=== PATIENT | female | born 1990 | race Two or more races ===

== ENCOUNTER 2024-04-07 04:46 | Inpatient (IN) | payer OTHER, SELFPAY ==
[2024-04-07 04:57] VITALS: BMI 36.4
[2024-04-07] MEDS: LR 1000 IV ×2 (05:40→12:09)
[2024-04-07] MEDS: VANCOCIN 540 MG IV (06:10)
[2024-04-07 06:28] LABS: % Basophils 0.3 % (0-2); % Eosinophils 0.8 % (0-6); % Immature Granulocytes 2.3 % (0-0.5); % Lymphocytes 14.7 % (20.5-51.1); % Neutrophils 76.9 % (42.2-75.2); Absolute Eosinophils 0.1 10^3/uL (0-0.7); Absolute Immature Granulocytes 0.4 10^3/uL (0-0.05); Absolute Lymphocytes 2.3 10^3/uL (1.2-3.4); Absolute Monocytes 0.8 10^3/uL (0.1-0.6); Hematocrit 41.1 % (37.0-47.0); Hemoglobin 12.8 g/dL (12.0-16.0); Mean Corp Hgb Conc. 31.1 g/dL (33.0-37.0); Mean Corpuscular Hgb 21.7 pg (27.0-31.0); Mean Corpuscular Volume 69.7 fL (81.0-99.0); Mean Platelet Volume 11.7 fL (7.4-10.4); Nucleated Red Blood Cells % 0 %; Platelet Count 231 10^3/uL (130-400); Red Cell Dist. Width 15.5 % (11.5-14.5); White Blood Cell Count 15.5 10^3/uL (4.8-10.8)
[2024-04-07 06:34] VITALS: BP 130/79
[2024-04-07] MEDS: SUBLIMAZE 100 MCG EPIDURAL (06:47)
[2024-04-07] MEDS: FENTANYL/BUPIVACAINE 100 EPIDURAL (06:47)
[2024-04-07] MEDS: BICITRA 30 ML PO (14:32)
[2024-04-07] MEDS: TYLENOL 1000 MG PO (14:32)
[2024-04-07] MEDS: ZITHROMAX INFUSION 250 IV (14:47)
[2024-04-07] MEDS: GENTAMICIN 60 MG IV (15:00)
[2024-04-07] MEDS: CLEOCIN 50 IV (15:00)
[2024-04-07] MEDS: TORADOL 15 MG IV ×2 (18:06→23:48)
[2024-04-08 05:32] LABS: Hematocrit 27.7 % (37.0-47.0); Hemoglobin 8.8 g/dL (12.0-16.0); Mean Corp Hgb Conc. 31.8 g/dL (33.0-37.0); Mean Corpuscular Volume 69.3 fL (81.0-99.0); Platelet Count 171 10^3/uL (130-400); Red Cell Dist. Width 15.2 % (11.5-14.5); White Blood Cell Count 14.9 10^3/uL (4.8-10.8)
[2024-04-08] MEDS: TORADOL 15 MG IV ×3 (05:57→18:01)
[2024-04-08] MEDS: FEOSOL 325 MG PO (08:58)
[2024-04-08] MEDS: TYLENOL 650 MG PO ×2 (08:59→20:17)
[2024-04-08] MEDS: PRENATAL PLUS 1 TABLET PO (08:59)
[2024-04-08] MEDS: SENOKOT-S 1 TABLET PO (08:59)
--- NOTE | 2024-04-08 13:37 | W.PN.ANS.POP ---
Anesthesia Post Operative
- Anesthesia Post Op Note
Vital Signs Stable-See Nursing Note: Yes
Airway Patent: Yes
Adequate Pain Control: Yes
Change in Mental Status: No
Current Postoperative Nausea & Vomiting: No
Anesthesia Complications: No
General Anesthetic Recall: No
Unplanned Admission: No
Post Op Hydration Adequate: Yes
[2024-04-08] MEDS: MYLICON 80 MG PO ×2 (15:46→20:17)
[2024-04-09] MEDS: TYLENOL 650 MG PO ×2 (00:12→06:15)
[2024-04-09] MEDS: MOTRIN 600 MG PO ×2 (00:13→06:15)
[2024-04-09] MEDS: FEOSOL 325 MG PO (07:52)
[2024-04-09] MEDS: PRENATAL PLUS 1 TABLET PO (07:52)
[2024-04-09] MEDS: SENOKOT-S 1 TABLET PO (07:52)
[2024-04-09] MEDS: MYLICON 80 MG PO (07:52)
--- NOTE | 2024-04-09 08:49 | W.DS.TRANS ---
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
-
Discharge Instructions:
Discharge Diagnosis/Procedures Section
Instructions:
Stand-Alone Forms: LDRP Delivery
Changes to Home Medications: No
Discharge Medications:
DC Medications w/original date entered in [facility]
ferrous sulfate 325 mg (65 mg iron) tablet (Iron (ferrous sulfate)) 325 mg PO DAILY Supplement 04/07/24
prenat.vits,tierra,isw-qvdh-gihby 1 tab PO DAILY Supplement 04/07/24
acetaminophen 325 mg tablet 650 mg (2 x 325 mg) PO Q4HPRN PRN mild pain #0 tabs 04/09/24
ibuprofen 600 mg tablet 600 mg PO Q6HPRN PRN cramps #45 tabs 04/09/24
sennosides 8.6 mg-docusate sodium 50 mg tablet 1 tab PO DAILYPRN PRN constipation #0 tabs 04/09/24
Home Medication Changes
Pending Results: No
[2024-04-09] MEDS: M-M-R II 0.5 ML SC (10:45)
[2024-04-11 15:48] LABS: Syphilis/T. pallidum Ab Reflex Negative (Negative)
== END 2024-04-09 11:18 | disposition home or self-care (01) | DRG 788 ==
LOC: LDRP 04:46
PROVIDERS: Obstetrics & Gynecology; ADMITTING PHYSICIAN Obstetrics & Gynecology; REFERRING PHYSICIAN Student in an Organized Health Care Education/Training Program
PROC: 10D00Z1 Extraction of Products of Conception, Low, Open Approach (ICD-10-PCS; 2024-04-07)
PROC: 4A1HXCZ Monitoring of Products of Conception, Cardiac Rate, External Approach (ICD-10-PCS; 2024-04-07)
PROC: 10H07YZ Insertion of Other Device into Products of Conception, Via Natural or Artificial Opening (ICD-10-PCS; 2024-04-07)
PROC: 3E0134Z Introduction of Serum, Toxoid and Vaccine into Subcutaneous Tissue, Percutaneous Approach (ICD-10-PCS; 2024-04-09)
DX: O62.1 Secondary uterine inertia (principal); O34.211 Maternal care for low transverse scar from previous cesarean delivery; O99.824 Streptococcus B carrier state complicating childbirth; J45.990 Exercise induced bronchospasm; O99.52 Diseases of the respiratory system complicating childbirth; D56.3 Thalassemia minor; O99.02 Anemia complicating childbirth; D50.9 Iron deficiency anemia, unspecified; Z23 Encounter for immunization; Z88.0 Allergy status to penicillin; Z3A.39 39 weeks gestation of pregnancy; Z37.0 Single live birth
CPT/HCPCS: 36415; 85025; 85027; 86780; 86850; 86900; 86901; 90707

== ENCOUNTER → 2024-05-24 10:10 | Outpatient (REF) | payer OTHER, SELFPAY | LOC: HWRAD 10:10 | PROVIDERS: ATTENDING PHYSICIAN Obstetrics & Gynecology | DX: N93.9 Abnormal uterine and vaginal bleeding, unspecified (principal) | CPT/HCPCS: 76830; 76856 ==